=== PATIENT | female | born 1985 | race Caucasian/White ===

== ENCOUNTER 2017-08-20 09:04 | Observation (INO) | payer BC ==
[2017-08-20] VITALS (7 sets, daily range): BP systolic 107–151; BP diastolic 56–91; PULSE 68–84; RESP 16–20; TEMP 97.1–98.1; O2SAT 95–100
[~2017-08-20] VITALS: Ht 165.1 cm; Wt 117.0 kg
[2017-08-20] MEDS ORDERED: PREN29TA PO (09:28)
[2017-08-20] MEDS ORDERED: SODIUM CHLORIDE 0.9% FLUSH 10 ML FLUSH IVF PRN (11:00)
--- NOTE | 2017-08-20 11:05 | PD ---
HPI Chief Complaint: Numbness/Tingling Time Seen by Provider: 10:36 Travel History International Travel<30 days: No Contact w/Intl Traveler<30days: No Traveled to known affect area: No History of Present Illness HPI Old female presents to the emergency room for evaluation of dizziness, right upper extremity numbness, lip numbness, and unreactive pupils that started when she woke up this morning. Patient states she rolled out of bed and felt dizzy. She went to work because symptoms resolved and while at work and difficulty reading the computer. States she would be typing a word and is sure that she took the whole word but could not see the end of the word that she get typed. She had her boyfriend bring her to an urgent care where they told her to come straight to the emergency room. Patient states on her way to the urgent care she developed the numbness and tingling but since she has arrived to the ED, the symptoms have resolved. She has history of some of her symptoms in the past but has never had the numbness and tingling before. She had a 4 months ago. She is not on any control. Denies any chest pain, shortness breath, or unilateral leg swelling. Denies any other significant medical history. Patient is pumping about 30 ounces per day. States she did not have breakfast until she got to the ED. PFSH Past Medical History Migraines: Yes Tetanus Vaccination: Unknown ?: Unknown LMP: UNK : 1 Para: 1 Past Surgical History Section: Yes Social History Alcohol Use: No Tobacco Use: No Substance Use: No Allergies-Medications (Allergen,Severity, Reaction): Coded Allergies: Sulfa (Sulfonamide Antibiotics) (Verified Allergy, Severe, 08/20/17) amoxicillin (Verified Allergy, Severe, 08/20/17) cefaclor (Verified Allergy, Severe, 08/20/17) Penicillins (Verified Allergy, Unknown, 08/20/17) Reported Meds & Prescriptions Reported Meds & Active Scripts Active Reported Plus Iron 29-1 mg ( Vit-Iron Carbonyl) 29 Mg Iron-1 Mg Tab 1 Tab PO DAILY Review of Systems Except as stated in HPI: all other systems reviewed are Neg Physical Exam Narrative GENERAL: Well-nourished, well-developed female no acute distress. Afebrile. Ambulatory. SKIN: Focused skin assessment warm/dry. HEAD: Normocephalic. EYES: PERRL, EOMI, no discharge or injection. No scleral icterus. ENT: Mucosa pink and moist. No erythema or exudates. No uvular edema. No uvular , palatal, or tonsillar deviation. Airway patent. Nasal turbinates appear normal without nasal blood, purulent drainage or septal hematoma. NECK: Supple, trachea midline. No JVD or lymphadenopathy. CARDIOVASCULAR: Regular rate and rhythm without murmurs, gallops, or rubs. RESPIRATORY: Breath sounds equal bilaterally. No accessory muscle use. NEUROLOGICAL: Awake and alert. Cranial nerves II through XII intact. Motor and sensory grossly within normal limits. Five out of 5 muscle strength in all muscle groups. Normal speech. No pronator drift in upper or lower extremities. Normal heel to roper test. Normal finger to nose test. No loss of visual mark. NIH stroke scale of 0. Data Data Last Documented VS Vital Signs Date Time Temp Pulse Resp B/P (MAP) Pulse Ox O2 Delivery O2 Flow Rate FiO2 08/20/17 12:15 68 18 107/66 (80) 97 Room Air 08/20/17 09:13 97.1 Orders Orders Blood Glucose (08/20/17 10:55) Electrocardiogram (08/20/17 11:00) Prothrombin Time / Inr (Pt) (08/20/17 11:00) Act Partial Throm Time (Ptt) (08/20/17 11:00) Complete Blood Count With Diff (08/20/17 11:00) Comprehensive Metabolic Panel (08/20/17 11:00) Creatine Kinase (Cpk) (08/20/17 11:00) Urinalysis - C+S If Indicated (08/20/17 11:00) Ct Brain W/O Iv Contrast(Rout) (08/20/17 11:00) Ecg Monitoring (08/20/17 11:00) Iv Access Insert/Monitor (08/20/17 11:00) Oximetry (08/20/17 11:00) Sodium Chloride 0.9% Flush (Ns Flush) (08/20/17 11:00) Sodium Chlor 0.9% 1000 Ml Inj (Ns 1000 M (08/20/17 12:15) Urine Culture (08/20/17 11:43) Cephalexin (Keflex) (08/20/17 13:30) Labs Laboratory Tests Test 08/20/17 11:15 08/20/17 11:43 White Blood Count 8.4 TH/MM3 Red Blood Count 4.85 MIL/MM3 Hemoglobin 13.9 GM/DL Hematocrit 41.4 % Mean Corpuscular Volume 85.3 FL Mean Corpuscular Hemoglobin 28.6 PG Mean Corpuscular Hemoglobin Concent 33.5 % Red Cell Distribution Width 13.7 % Platelet Count 243 TH/MM3 Mean Platelet Volume 8.4 FL Neutrophils (%) (Auto) 82.4 % Lymphocytes (%) (Auto) 13.2 % Monocytes (%) (Auto) 4.2 % Eosinophils (%) (Auto) 0.0 % Basophils (%) (Auto) 0.2 % Neutrophils # (Auto) 6.9 TH/MM3 Lymphocytes # (Auto) 1.1 TH/MM3 Monocytes # (Auto) 0.4 TH/MM3 Eosinophils # (Auto) 0.0 TH/MM3 Basophils # (Auto) 0.0 TH/MM3 CBC Comment DIFF FINAL Differential Comment Prothrombin Time 10.2 SEC Prothromb Time International Ratio 1.0 RATIO Activated Partial Thromboplast Time 26.3 SEC Blood Urea Nitrogen 14 MG/DL Creatinine 0.67 MG/DL Random Glucose 95 MG/DL Total Protein 7.4 GM/DL Albumin 3.8 GM/DL Calcium Level 8.8 MG/DL Alkaline Phosphatase 83 U/L Aspartate Amino Transf (AST/SGOT) 19 U/L Alanine Aminotransferase (ALT/SGPT) 44 U/L Total Bilirubin 0.5 MG/DL Sodium Level 140 MEQ/L Potassium Level 4.0 MEQ/L Chloride Level 105 MEQ/L Carbon Dioxide Level 26.0 MEQ/L Anion Gap 9 MEQ/L Estimat Glomerular Filtration Rate 101 ML/MIN Total Creatine Kinase 61 U/L Urine Color YELLOW Urine Turbidity HAZY Urine pH 8.0 Urine Specific [place] 1.019 Urine Protein NEG mg/dL Urine Glucose (UA) NEG mg/dL Urine Ketones NEG mg/dL Urine Occult Blood NEG Urine Nitrite NEG Urine Bilirubin NEG Urine Urobilinogen LESS THAN 2.0 MG/DL Urine Leukocyte Esterase TRACE Urine RBC LESS THAN 1 /hpf Urine WBC 1 /hpf Urine Squamous Epithelial Cells 5 /hpf Urine Bacteria RARE /hpf Urine Mucus FEW /lpf Microscopic Urinalysis Comment CATH-CULTURE IND MDM Medical Decision Making Medical Screen Exam Complete: Yes Emergency Medical Condition: Yes Medical Record Reviewed: Yes Differential Diagnosis TIA, electrolyte abnormality, dehydration, hypoglycemia, brain tumor Narrative Course 32-year-old female presents to the emergency room for evaluation of right arm numbness, lip numbness, dizziness, and changes in vision that started upon waking. She went to an urgent care and they sent her directly here concerned for stroke. States since being evaluated in the ED her symptoms have resolved. Patient is resting comfortably and in no acute distress. There are no focal neurological deficits. Neuro exam is negative. NIH stroke scale of 0. IV access established basic labs obtained. EKG ordered. CT of the brain ordered and pending. Patient signed out to oncoming provider. See her note for further disposition. Condition: Stable Malika Yung Aug 20, 2017 11:05
--- NOTE | 2017-08-20 11:27 | PD ---
Physical Exam Date Seen by Provider: Aug 20, 2017 Time Seen by Provider: 11:26 Narrative This patient was initially seen by Malika Yung PA-C. Please see her note for details. Briefly, this is a 32-year-old female who began experiencing unilateral paresthesias and some loss of vision while at work today. Symptoms resolved on presentation. 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 She did not have anything to eat before the symptoms arose today. Patient signed out to me with lab work pending. GENERAL: Well-nourished, well-developed obese white female no acute distress. SKIN: Warm and dry. HEAD: Normocephalic. Atraumatic. EYES: No scleral icterus. No injection or drainage. PERRLA. EOMI. ENT: Pearly thompson tympanic membranes bilaterally. Nasal mucosa is moist. Oropharynx without erythema, edema or exudate. NECK: Supple, trachea midline. No JVD or lymphadenopathy. CARDIOVASCULAR: Regular rate and rhythm without murmurs, gallops, or rubs. RESPIRATORY: Breath sounds clear and equal bilaterally. No accessory muscle use. GASTROINTESTINAL: Abdomen soft, non-tender, nondistended. + Bowel sounds MUSCULOSKELETAL: No cyanosis, or edema. Walks with a normal gait. NEUROLOGICAL: Awake and alert. Cranial nerves II through XII intact. Motor and sensory grossly within normal limits. Five out of 5 muscle strength in all muscle groups. Normal speech. BACK: Nontender without obvious deformity. No CVA tenderness. Data Data Last Documented VS Vital Signs Date Time Temp Pulse Resp B/P (MAP) Pulse Ox O2 Delivery O2 Flow Rate FiO2 08/20/17 12:15 68 18 107/66 (80) 97 Room Air 08/20/17 09:13 97.1 Orders Orders Blood Glucose (08/20/17 10:55) Electrocardiogram (08/20/17 11:00) Prothrombin Time / Inr (Pt) (08/20/17 11:00) Act Partial Throm Time (Ptt) (08/20/17 11:00) Complete Blood Count With Diff (08/20/17 11:00) Comprehensive Metabolic Panel (08/20/17 11:00) Creatine Kinase (Cpk) (08/20/17 11:00) Urinalysis - C+S If Indicated (08/20/17 11:00) Ct Brain W/O Iv Contrast(Rout) (08/20/17 11:00) Ecg Monitoring (08/20/17 11:00) Iv Access Insert/Monitor (08/20/17 11:00) Oximetry (08/20/17 11:00) Sodium Chloride 0.9% Flush (Ns Flush) (08/20/17 11:00) Sodium Chlor 0.9% 1000 Ml Inj (Ns 1000 M (08/20/17 12:15) Urine Culture (08/20/17 11:43) Cephalexin (Keflex) (08/20/17 13:30) Admit Order (Ed Use Only) (08/20/17 13:45) Labs Laboratory Tests Test 08/20/17 11:15 08/20/17 11:43 White Blood Count 8.4 TH/MM3 Red Blood Count 4.85 MIL/MM3 Hemoglobin 13.9 GM/DL Hematocrit 41.4 % Mean Corpuscular Volume 85.3 FL Mean Corpuscular Hemoglobin 28.6 PG Mean Corpuscular Hemoglobin Concent 33.5 % Red Cell Distribution Width 13.7 % Platelet Count 243 TH/MM3 Mean Platelet Volume 8.4 FL Neutrophils (%) (Auto) 82.4 % Lymphocytes (%) (Auto) 13.2 % Monocytes (%) (Auto) 4.2 % Eosinophils (%) (Auto) 0.0 % Basophils (%) (Auto) 0.2 % Neutrophils # (Auto) 6.9 TH/MM3 Lymphocytes # (Auto) 1.1 TH/MM3 Monocytes # (Auto) 0.4 TH/MM3 Eosinophils # (Auto) 0.0 TH/MM3 Basophils # (Auto) 0.0 TH/MM3 CBC Comment DIFF FINAL Differential Comment Prothrombin Time 10.2 SEC Prothromb Time International Ratio 1.0 RATIO Activated Partial Thromboplast Time 26.3 SEC Blood Urea Nitrogen 14 MG/DL Creatinine 0.67 MG/DL Random Glucose 95 MG/DL Total Protein 7.4 GM/DL Albumin 3.8 GM/DL Calcium Level 8.8 MG/DL Alkaline Phosphatase 83 U/L Aspartate Amino Transf (AST/SGOT) 19 U/L Alanine Aminotransferase (ALT/SGPT) 44 U/L Total Bilirubin 0.5 MG/DL Sodium Level 140 MEQ/L Potassium Level 4.0 MEQ/L Chloride Level 105 MEQ/L Carbon Dioxide Level 26.0 MEQ/L Anion Gap 9 MEQ/L Estimat Glomerular Filtration Rate 101 ML/MIN Total Creatine Kinase 61 U/L Urine Color YELLOW Urine Turbidity HAZY Urine pH 8.0 Urine Specific [place] 1.019 Urine Protein NEG mg/dL Urine Glucose (UA) NEG mg/dL Urine Ketones NEG mg/dL Urine Occult Blood NEG Urine Nitrite NEG Urine Bilirubin NEG Urine Urobilinogen LESS THAN 2.0 MG/DL Urine Leukocyte Esterase TRACE Urine RBC LESS THAN 1 /hpf Urine WBC 1 /hpf Urine Squamous Epithelial Cells 5 /hpf Urine Bacteria RARE /hpf Urine Mucus FEW /lpf Microscopic Urinalysis Comment CATH-CULTURE IND MDM Supervised Visit with GREGORY: No Differential Diagnosis Hypoglycemia versus metabolic derangement versus less likely TIA versus other Narrative Course This patient was initially seen by Malika Yung PA-C. Please see her note for details. Briefly, this is a 32-year-old female who began experiencing unilateral paresthesias and some loss of vision while at work today. Symptoms resolved on presentation. 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 She did not have anything to eat before the symptoms arose today. Patient signed out to me with lab work pending. Vitals reviewed. Patient hypertensive on presentation, resolved during the course of the workup. No focal neuro deficits on exam. IV was established. Patient was administered 1 L normal saline. EKG rate 59, sinus bradycardia. FL interval 123, QRS 109, QTC 429 ms. Normal axis. No acute ST changes. Reviewed by Dr. Pardo. Fingerstick blood glucose [address] brain: Negative noncontrast CT. CBC: No concerning abnormalities. INR 1.0. CMP unremarkable. UA: Hazy, trace leukocyte esterase, rare bacteria, few mucus. Culture pending. I discussed the results of the workup with the patient. She states that she has many medication allergies but has taken Keflex safely in the past, last utilized before her . Will initiate Keflex 500 mg twice daily. Symptoms suspicious for TIA versus hypoglycemia. Patient is agreeable to observation admission for TIA workup. I spoke with Dr. Rojas. who agrees to accept the patient to the medicine service. Please see medicine notes for disposition. Condition: Stable Delmi Loera Aug 20, 2017 11:27
[2017-08-20 11:38] LABS: AUTOMATED NEUTROPHIL # 6.9 TH/MM3 (1.8-7.7); BASOPHIL % 0.2 % (0.0-2.0); HEMATOCRIT 41.4 % (35.0-46.0); HEMOGLOBIN 13.9 GM/DL (11.6-15.3); LYMPH % 13.2 % (9.0-44.0); LYMPHOCYTE # 1.1 TH/MM3 (1.0-4.8); MEAN CELL VOLUME 85.3 FL (80.0-100.0); MEAN CORPUSCULAR HEMOGLOBIN 28.6 PG (27.0-34.0); MEAN CORPUSCULAR HGB CONC 33.5 % (32.0-36.0); MEAN PLATELET VOLUME 8.4 FL (7.0-11.0); MONO % 4.2 % (0.0-8.0); MONOCYTE # 0.4 TH/MM3 (0-0.9); NEUT % 82.4 % (16.0-70.0); PLATELET COUNT 243 TH/MM3 (150-450); RED BLOOD COUNT 4.85 MIL/MM3 (4.00-5.30); RED CELL DISTRIBUTION WIDTH 13.7 % (11.6-17.2); WHITE BLOOD COUNT 8.4 TH/MM3 (4.0-11.0)
[2017-08-20 11:55] LABS: PROTHROMBIN TIME - PATIENT 10.2 SEC (9.8-11.6)
[2017-08-20 12:05] LABS: ALBUMIN 3.8 GM/DL (3.4-5.0); ALT (GPT) 44 U/L (10-53); BLOOD UREA NITROGEN 14 MG/DL (7-18); CALCIUM 8.8 MG/DL (8.5-10.1); CHLORIDE 105 MEQ/L (98-107); CREATININE 0.67 MG/DL (0.50-1.00); GLOMERULAR FILTRATION RATE 101 ML/MIN (>89); GLUCOSE,RANDOM 95 MG/DL (74-106); SODIUM (NA) 140 MEQ/L (136-145)
[2017-08-20 12:08] LABS: ALKALINE PHOSPHATASE 83 U/L (45-117); AST (GOT) 19 U/L (15-37); TOTAL BILIRUBIN ADULT 0.5 MG/DL (0.2-1.0); TOTAL PROTEIN 7.4 GM/DL (6.4-8.2)
--- NOTE | 2017-08-20 12:09 | RADRPT ---
EXAM DATE: 08/20/2017 11:49 AM EDT AGE/SEX: 32 years / Female INDICATIONS: Right sided facial numbness, dizziness, right pupil unreactive, headache. CLINICAL DATA: This is the patient's initial encounter. Patient reports that signs and symptoms have been present for 1 day and indicates a pain score of 3/10. MEDICAL/SURGICAL HISTORY: None. None. RADIATION DOSE: 56.35 CTDI (mGy) COMPARISON: No prior [facility] exams available for comparison. TECHNIQUE: CT of the head without contrast. Using automated exposure control and adjustment of the mA and/or kV according to patient size, radiation dose was kept as low as reasonably achievable to ob tain optimal diagnostic quality images. FINDINGS: Cerebrum: The ventricles are normal. No midline shift, mass lesion, hemorrhage or acute infarction. No extraaxial fluid collections are seen. Posterior Fossa: The cerebellum and brainstem demonstrate no acute abnormality. The 4th ventricle is midline. The cerebellopontine angle is within normal limits. Extracranial: The visualized sinuses are clear. There is an 8 mm subcutaneous scalp nodule at the le ft high convexity. Skull: The calvaria is intact. No skull fracture. CONCLUSION: Negative noncontrast head CT. No acute finding is identified. Electronically signed by: Chepe Green MD 08/20/2017 12:08 PM EDT
[2017-08-20] MEDS ORDERED: SODIUM CHLOR 0.9% 1000 ML INJ 1,000 ML IV ONE (12:15)
[2017-08-20 12:32] LABS: BACTERIA, URINE RARE /hpf; BILIRUBIN, URINE NEG (NEG); BLOOD, URINE NEG (NEG); GLUCOSE,URINE NEG (NEG); KETONE, URINE NEG (NEG); MUCUS URINE FEW /lpf (OCC); NITRITE,URINE NEG (NEG); SQUAMOUS EPITHELIAL CELL URINE 5 /hpf (0-5); URINE COLOR YELLOW (YELLW/STRAW); URINE LEUKOCYTE ESTERASE TRACE (NEG)
[2017-08-20] MEDS: CEPHALEXIN MONOHYDRATE 500 MG CAP PO SCH ×2 (13:31→23:06)
--- NOTE | 2017-08-20 14:17 | HHI.HP ---
[facility] No Primary Care Physician Admission Diagnosis right sided parasthesias, UTI Diagnoses: Chief Complaint: right sided paresthesia, blurred vision Travel History International Travel<30 Days: No Contact w/Intl Traveler <30 Da: No Traveled to Known Affected Are: No History of Present Illness Written by Carol Davenport, acting as scribe for Dr. Rojas on 08/20/17 at 14: 15. 32-year-old female with history of migraines presents with acute onset of right face/tongue/arm numbness and blurred vision. The patient reports this morning she woke up just not feeling right. She went to work despite not feeling well, then started to become dizzy with blurred vision and was unable to read her emails. She reports mild headache with nausea but no vomiting. She was waiting to leave work when her right face, right arm, and right side of the tongue went completely numb. She went to an urgent care who told her that her right pupil was sluggish and nonreactive. Her symptoms lasted approximately 30 minutes, then resolved on its own. She denies any recent fevers/chills. She reports recent mild headache but nothing compared to her migraines. She is currently 5months and actively . She admits to not eating anything today. She reports a normal healthy . She denies any other medical complaints including no slurred speech, chest pain, palpitations, shortness of breath, abdominal pain, nausea/vomiting, diarrhea, or constipation. Review of Systems Except as stated in HPI: all other systems reviewed are Neg Past Family Social History Past Medical History Migraines Recent intrauterine s/p Mar 2017 Past Surgical History March 2017 Reported Medications Plus Iron 29-1 mg ( Vit-Iron Carbonyl) 29 Mg Iron-1 Mg Tab 1 Tab PO DAILY Tylenol prn Allergies: Coded Allergies: Penicillins (Verified Allergy, Intermediate, Hives, 08/20/17) Sulfa (Sulfonamide Antibiotics) (Verified Allergy, Intermediate, Hives, 08/20/17) amoxicillin (Verified Allergy, Intermediate, Hives, 08/20/17) cefaclor (Verified Allergy, Intermediate, Hives, 08/20/17) Active Ordered Medications Current Medications Medications (Trade) Dose Ordered Sig/Patsy Route Start Time Stop Time Status Last Admin (NS Flush) 2 ml UNSCH PRN IVF 08/20/17 11:00 (Keflex) 500 mg Q12HR PO 08/20/17 13:30 Future hold 08/20/17 13:31 Family History Mother and father with hypertension Maternal and paternal family history positive for strokes and heart disease Social History Quit smoking tobacco 1 year ago Denies any alcohol use Denies any illicit drug use Physical Exam Vital Signs Vital Signs Date Time Temp Pulse Resp B/P (MAP) Pulse Ox O2 Delivery O2 Flow Rate FiO2 08/20/17 12:15 68 18 107/66 (80) 97 Room Air 08/20/17 09:25 18 08/20/17 09:13 97.1 71 20 151/91 (111) 100 Physical Exam GENERAL: Well-nourished, well-developed pleasant young overweight female patient in [facility]. SKIN: Warm and dry. No rash. HEAD: Normocephalic. Atraumatic. EYES: PERRLA. No scleral icterus. No injection or drainage. ENT: No nasal bleeding or discharge. Mucous membranes pink and moist. NECK: Supple. Trachea midline. CARDIOVASCULAR: Regular rate and rhythm. No murmur appreciated. RESPIRATORY: No accessory muscle use. Clear to auscultation. Breath sounds equal bilaterally. GASTROINTESTINAL: Abdomen soft, non-tender, nondistended. Normoactive bowel sounds x4. MUSCULOSKELETAL: No obvious deformities. Extremities without clubbing, cyanosis , or edema. NEUROLOGICAL: Awake and alert. No obvious cranial nerve deficits. Motor grossly within normal limits. 5/5 muscle strength in bilateral upper and lower extremities. Normal speech. PSYCHIATRIC: Appropriate mood and affect; insight and judgment normal. Laboratory Laboratory Tests Test 08/20/17 11:15 08/20/17 11:43 White Blood Count 8.4 Red Blood Count 4.85 Hemoglobin 13.9 Hematocrit 41.4 Mean Corpuscular Volume 85.3 Mean Corpuscular Hemoglobin 28.6 Mean Corpuscular Hemoglobin Concent 33.5 Red Cell Distribution Width 13.7 Platelet Count 243 Mean Platelet Volume 8.4 Neutrophils (%) (Auto) 82.4 Lymphocytes (%) (Auto) 13.2 Monocytes (%) (Auto) 4.2 Eosinophils (%) (Auto) 0.0 Basophils (%) (Auto) 0.2 Neutrophils # (Auto) 6.9 Lymphocytes # (Auto) 1.1 Monocytes # (Auto) 0.4 Eosinophils # (Auto) 0.0 Basophils # (Auto) 0.0 CBC Comment DIFF FINAL Differential Comment Prothrombin Time 10.2 Prothromb Time International Ratio 1.0 Activated Partial Thromboplast Time 26.3 Blood Urea Nitrogen 14 Creatinine 0.67 Random Glucose 95 Total Protein 7.4 Albumin 3.8 Calcium Level 8.8 Alkaline Phosphatase 83 Aspartate Amino Transf (AST/SGOT) 19 Alanine Aminotransferase (ALT/SGPT) 44 Total Bilirubin 0.5 Sodium Level 140 Potassium Level 4.0 Chloride Level 105 Carbon Dioxide Level 26.0 Anion Gap 9 Estimat Glomerular Filtration Rate 101 Total Creatine Kinase 61 Urine Color YELLOW Urine Turbidity HAZY Urine pH 8.0 Urine Specific [place] 1.019 Urine Protein NEG Urine Glucose (UA) NEG Urine Ketones NEG Urine Occult Blood NEG Urine Nitrite NEG Urine Bilirubin NEG Urine Urobilinogen LESS THAN 2.0 Urine Leukocyte Esterase TRACE Urine RBC LESS THAN 1 Urine WBC 1 Urine Squamous Epithelial Cells 5 Urine Bacteria RARE Urine Mucus FEW Microscopic Urinalysis Comment CATH-CULTURE IND Date/Time Source Procedure Growth Status 08/20/17 11:43 Urine Catheterized Urine Urine Culture Pending Received Result Diagram: 08/20/17 1115 08/20/17 1115 Imaging Last Impressions Head CT 08/20/17 1100 Signed Impressions: CONCLUSION: Negative noncontrast head CT. No acute finding is identified. Caprini VTE Risk Assessment Caprini VTE Risk Assessment: No/Low Risk (score <= 1) Caprini Risk Assessment Model Point Value = 1 Point Value = 2 Point Value = 3 Point Value = 5 Age 41-60 Minor surgery BMI > 25 kg/m2 Swollen legs Varicose veins or History of unexplained or recurrent spontaneous Oral contraceptives or hormone replacement Sepsis (< 1 month) Serious lung disease, including pneumonia (< 1 month) Abnormal pulmonary function Acute myocardial infarction Congestive heart failure (< 1 month) History of inflammatory bowel disease Medical patient at bed rest Age 61-74 Arthroscopic surgery Major open surgery (> 45 min) Laparoscopic surgery (> 45 min) Malignancy Confined to bed (> 72 hours) Immobilizing plaster cast Central venous access Age >= 75 History of VTE Family history of VTE Factor V Leiden Prothrombin [id number] Lupus anticoagulant Anticardiolipin antibodies Elevated serum homocysteine Heparin-induced thrombocytopenia Other congenital or acquired thrombophilia Stroke (< 1 month) Elective arthroplasty Hip, pelvis, or leg fracture Acute spinal cord injury (< 1 month) Prophylaxis Regimen Total Risk Factor Score Risk Level Prophylaxis Regimen 0-1 Low Early ambulation 2 Moderate Order ONE of the following: *Sequential Compression Device (SCD) *Heparin 5000 units SQ BID 3-4 Higher Order ONE of the following medications: *Heparin 5000 units SQ TID *Enoxaparin/Lovenox 40 mg SQ daily (WT < 150 kg, CrCl > 30 mL/min) *Enoxaparin/Lovenox 30 mg SQ daily (WT < 150 kg, CrCl > 10-29 mL/min) *Enoxaparin/Lovenox 30 mg SQ BID (WT < 150 kg, CrCl > 30 mL/min) AND/OR *Sequential Compression Device (SCD) 5 or more Highest Order ONE of the following medications: *Heparin 5000 units SQ TID (Preferred with Epidurals) *Enoxaparin/Lovenox 40 mg SQ daily (WT < 150 kg, CrCl > 30 mL/min) *Enoxaparin/Lovenox 30 mg SQ daily (WT < 150 kg, CrCl > 10-29 mL/min) *Enoxaparin/Lovenox 30 mg SQ BID (WT < 150 kg, CrCl > 30 mL/min) AND *Sequential Compression Device (SCD) Assessment and Plan Problem List: (1) TIA (transient ischemic attack) ICD Code: G45.9 - Transient cerebral ischemic attack, unspecified Assessment and Plan 32-year-old female with history of migraines presents with acute onset of right face/tongue/arm numbness and blurred vision. TIA: Presented with right-sided paresthesias and blurred vision, symptoms resolved after 30 minutes. -Head CT reviewed and unremarkable -Check brain MRI, carotid ultrasound, echocardiogram -No complaints of chest pain, check troponin/EKG x1 -Monitor neuro checks -Monitor on telemetry -Consult PT/OT and check swallow eval -Check lipid panel, hemoglobin A1c Abnormal UA: UA with trace leuks, bacteria. Afebrile, no leukocytosis. -Continue Keflex 500 mg p.o.bid started in the ER until urine culture finalized /breast-feeding: Patient reports normal healthy , currently still breast-feeding -Monitor medications -Patient will continue to pump while in the hospital -Check test DVT prophylaxis: Teds/SCDs Discussed Condition With Patient, ER PA Attending Statement This note was transcribed by ankit Davenport. I, Dr. Pelon Rojas personally performed the history, physical exam, and medical decision making; and confirmed the accuracy of the information in the transcribed note. Authenticated by Dr. Pelon Rojas on 08/20/17 at 15:07. Carol Davenport PA-C Aug 20, 2017 14:17 Pelon Rojas MD Aug 20, 2017 15:07
[2017-08-20] MEDS ORDERED: DEXTROSE 50% IN WATER 50 ML VIAL(D50) IV PUSH PRN (14:45)
[2017-08-20] MEDS ORDERED: GLUCAGON 1 MG/ML VIAL OTHER PRN (14:45)
[2017-08-20] MEDS ORDERED: SODIUM CHLORIDE 0.9% FLUSH 10 ML FLUSH IV FLUSH PRN (14:45)
--- NOTE | 2017-08-20 16:36 | RADRPT ---
EXAM DATE: 08/20/2017 4:30 PM EDT AGE/SEX: 32 years / Female INDICATIONS: Right sided numbness and blurred vision. CLINICAL DATA: This is the patient's initial encounter. Patient reports that signs and symptoms have been present for 1 day and indicates a pain score of 0/10. MEDICAL/SURGICAL HISTORY: . Migraines. section. COMPARISON: No prior [place] exams available for comparison. No external comparison. VELOCITY PARAMETERS: ICA/CCA Ratio: Right 0.8 , Left 0.8 ICA: Right 84 cm/sec, Left 102 cm/sec CCA: Right 109 cm/sec, Left 122 cm/sec ECA: Right 107 cm/sec, Left 97 cm/sec Vertebral: Right 81 cm/sec antegrade, Left 84 cm/sec antegrade FINDINGS: Right Carotid: No significant stenosis is visualized. The waveforms are within normal limits. Left Carotid: No significant stenosis is visualized. The waveforms are within normal limits. Other: None. CONCLUSION: No evidence of flow-limiting carotid stenosis. Electronically signed by: Chepe Lerner MD 08/20/2017 4:35 PM EDT
[2017-08-20] MEDS: INSULIN ASPART SUPPLEMENTAL SCALE SQ SCH ×2 (17:00→23:07)
[2017-08-20 17:15] LABS: HEMOGLOBIN A1C 5.1 % (4.3-6.0)
--- NOTE | 2017-08-20 20:23 | RADRPT ---
EXAM DATE: 08/20/2017 6:41 PM EDT AGE/SEX: 32 years / Female INDICATIONS: . Right sided facial numbness. CLINICAL DATA: This is the patient's initial encounter. Patient reports that signs and symptoms have been present for 2 days and indicates a pain score of 0/10. MEDICAL/SURGICAL HISTORY: None. section. COMPARISON: No prior [facility] exams available for comparison. TECHNIQUE: Multiplanar, multisequence examination of the brain was performed without contrast. FINDINGS: No intracranial mass or midline shift. No hydrocephalus. No abnormal extra-axial fluid collections ar e present. There are some cutaneous lesions within the scalp, possibly small sebaceous cysts. No recent infarct. No hydrocephalus or abnormal extra-axial fluid collections. CONCLUSION: 1. No acute findings. No recent infarct or mass effect. Electronically signed by: Adebayo Robles MD 08/20/2017 8:22 PM EDT
[2017-08-20] MEDS: SODIUM CHLORIDE 0.9% FLUSH 10 ML FLUSH IV FLUSH SCH (23:07)
[2017-08-21 02:50] VITALS: BP 117/58; PULSE 78; RESP 16; TEMP 98.1; O2SAT 96
[2017-08-21 07:30] VITALS: PULSE 74
[2017-08-21 07:43] LABS: CHOLESTEROL/ HDL RATIO 2.04 RATIO; HDL CHOLESTEROL 57.1 MG/DL (40.0-60.0)
[2017-08-21] MEDS: INSULIN ASPART SUPPLEMENTAL SCALE SQ SCH ×2 (07:56→12:00)
[2017-08-21] MEDS: CEPHALEXIN MONOHYDRATE 500 MG CAP PO SCH (08:00)
[2017-08-21] MEDS: SODIUM CHLORIDE 0.9% FLUSH 10 ML FLUSH IV FLUSH SCH (08:00)
[2017-08-21 08:58] VITALS: BP 128/68; PULSE 83; RESP 18; TEMP 98.9; O2SAT 98
--- NOTE | 2017-08-21 11:07 | HHI.PR ---
Subjective Remarks Follow up on patient with suspected TIA. Patient seen and examined. Patient states she is ready to go home. She denies any recurrence of right sided facial /tongue/arm numbness. She denies any headache, vision changes, dizziness or lightheadedness. She denies any numbness or weakness. She denies any fever or chills. She denies any chest pain or shortness of breath. She denies any nausea, vomiting or abdominal pain. She has been seen by PT/OT/ST and all have signed off. Objective Vitals Vital Signs Date Time Temp Pulse Resp B/P (MAP) Pulse Ox O2 Delivery O2 Flow Rate FiO2 08/21/17 08:58 98.9 83 18 128/68 (88) 98 08/21/17 07:30 74 08/21/17 02:50 98.1 78 16 117/58 (77) 96 08/20/17 23:00 73 08/20/17 22:52 98.1 81 16 115/56 (75) 97 08/20/17 19:35 97.7 84 16 120/69 (86) 97 08/20/17 17:11 71 08/20/17 16:05 98.0 81 20 137/75 (95) 95 08/20/17 15:42 08/20/17 12:15 68 18 107/66 (80) 97 Room Air I/O 08/20/17 08/20/17 08/20/17 08/21/17 08/21/17 08/21/17 07:00 15:00 23:00 07:00 15:00 23:00 Intake Total 1000 ml Balance 1000 ml Intake IV Total 1000 ml Result Diagram: 08/20/17 1115 08/20/17 1115 Imaging Last Impressions Head CT 08/20/17 1100 Signed Impressions: CONCLUSION: Negative noncontrast head CT. No acute finding is identified. Carotid Artery Ultrasound 08/20/17 0000 Signed Impressions: CONCLUSION: No evidence of flow-limiting carotid stenosis. Brain MRI 08/20/17 0000 Signed Impressions: CONCLUSION: 1. No acute findings. No recent infarct or mass effect. Objective Remarks GENERAL: Well-nourished, well-developed pleasant young overweight female patient in NAD. Awake and alert. Sitting up in bed. SKIN: Warm and dry. No rash. HEAD: Normocephalic. Atraumatic. EYES: PERRLA. No scleral icterus. No injection or drainage. ENT: No nasal bleeding or discharge. Mucous membranes pink and moist. NECK: Supple. Trachea midline. CARDIOVASCULAR: Regular rate and rhythm. No murmur appreciated. RESPIRATORY: Nonlabored. Clear to auscultation. Breath sounds equal bilaterally. GASTROINTESTINAL: Abdomen soft, non-tender, nondistended. Normoactive bowel sounds x4. MUSCULOSKELETAL: No obvious deformities. Extremities without clubbing, cyanosis , or edema. NEUROLOGICAL: Awake and alert. No obvious cranial nerve deficits. Motor grossly within normal limits. 5/5 muscle strength in bilateral upper and lower extremities. Normal speech. PSYCHIATRIC: Appropriate mood and affect; insight and judgment normal. Procedures None A/P Problem List: (1) TIA (transient ischemic attack) ICD Code: G45.9 - Transient cerebral ischemic attack, unspecified Assessment and Plan 32-year-old female with history of migraines presents with acute onset of right face/tongue/arm numbness and blurred vision. TIA: Presented with right-sided paresthesias and blurred vision, symptoms resolved after 30 minutes. Hx of migraines Head CT reviewed and unremarkable Brain MRI negative Carotid US negative LDL 53, A1c 5.1 -2D echocardiogram pending -Monitor neuro checks -Monitor on telemetry Abnormal UA: UA with trace leuks, bacteria. Afebrile, no leukocytosis. -UCX growing 50-100,000 Gram + jo ann, likely contaminants -d/c Keflex /breast-feeding: Patient reports normal healthy , currently still breast-feeding -Monitor medications -Patient will continue to pump while in the hospital DVT prophylaxis: Teds/SCDs 1717 Echo resulted Normal left ventricular size. Wall thickness is normal. The left ventricular systolic function is normal with an estimated ejection fraction in the range of 55-60%. No regional wall motion abnormalities are present. Discharge patient to home Condition on discharge: Improved Regular Diet as tolerated Ad Anay activity Rx written: None Follow-up with primary care physician Aruna Davey Aug 21, 2017 11:07
[2017-08-21 12:29] VITALS: PULSE 75
[2017-08-21 12:46] VITALS: BP 149/66; PULSE 80; RESP 18; TEMP 97.9; O2SAT 98
--- NOTE | 2017-08-21 15:22 | EKG ---
Date Performed: 08/20/2017 Time Performed: 10:55:14 PTAGE: 32 years EKG: SINUS BRADYCARDIA LOW QRS VOLTAGE IN PRECORDIAL LEADS INCOMPLETE RIGHT BUNDLE BRANCH BLOCK BORDERLINE ECG NO PREVIOUS TRACING DOCTOR: Milagro De Los Santos Interpretating Date/Time 08/21/2017 15:21:02
--- NOTE | 2017-08-21 16:03 | ECHRPT ---
Indication: cva/tia CONCLUSIONS The left ventricular systolic function is normal with an estimated ejection fraction in the range of 55-60%. There is trace tricuspid valve regurgitation. Trivial pulmonary valve regurgitation. BP: / HR: Rhythm: Technical Quality: FINDINGS LEFT VENTRICLE Normal left ventricular size. Wall thickness is normal. The left ventricular systolic function is normal with an estimated ejection fraction in the range of 55-60%. No regional wall motion abnormalities are present. RIGHT VENTRICLE Normal right ventricular size and systolic function. LEFT ATRIUM The left atrial size is normal. RIGHT ATRIUM The right atrial size is normal. ATRIAL SEPTUM Normal atrial septal thickness AORTA The aortic root and proximal ascending aorta are normal in size on limited imaging. MITRAL VALVE Structurally normal mitral valve. No mitral valve stenosis or regurgitation. AORTIC VALVE Probably trileaflet aortic valve. No aortic valve stenosis or regurgitation. TRICUSPID VALVE Structurally normal tricuspid valve. No tricuspid valve stenosis. There is trace tricuspid valve regurgitation. PULMONARY VALVE Trivial pulmonary valve regurgitation. VESSELS The inferior vena cava is normal in size. PERICARDIUM No pericardial effusion. Rajinder Chavez DO (Electronically Signed) Final Date:21 August 2017 16:01
[2017-08-21 16:05] VITALS: PULSE 68
--- NOTE | 2017-08-21 18:07 | PD ---
Physical Exam Narrative I, Dr. Pardo, have reviewed the mid-level practitioners documentation treatment, met with the patient [id number], made the diagnosis, and medical decision making was done by me. Please see the mid-level provider's note for full history, physical, and disposition. My assessment and findings: Patient presented to the emergency department complaining of dizziness and lightheadedness. States that she did not eat breakfast this morning but after she ate she felt better. Also noted some left- sided paresthesias that lasted approximately 30 minutes in duration. Prior to ER arrival all the symptoms resolved. She presented to the emergency department afebrile, hypotensive at 107/66, remaining vital signs stable. No focal neuro deficits noted on exam. Patient was placed on the classroom monitor, IV access obtained, and labs/head CT/EKG were done. CT head was negative for any acute process, EKG showed no acute changes, UA was trace positive for leukocyte esterase with culture pending. Patient does report a history of migraines, but unsure as to if symptoms are related to TIA, hypoglycemia, CVA, or complex migraine. Consequently, patient will be admitted for 23 hour observation. Data Data Last Documented VS Vital Signs Date Time Temp Pulse Resp B/P (MAP) Pulse Ox O2 Delivery O2 Flow Rate FiO2 08/20/17 12:15 68 18 107/66 (80) 97 Room Air 08/20/17 09:13 97.1 Orders Orders Blood Glucose (08/20/17 10:55) Electrocardiogram (08/20/17 11:00) Prothrombin Time / Inr (Pt) (08/20/17 11:00) Act Partial Throm Time (Ptt) (08/20/17 11:00) Complete Blood Count With Diff (08/20/17 11:00) Comprehensive Metabolic Panel (08/20/17 11:00) Creatine Kinase (Cpk) (08/20/17 11:00) Urinalysis - C+S If Indicated (08/20/17 11:00) Ct Brain W/O Iv Contrast(Rout) (08/20/17 11:00) Ecg Monitoring (08/20/17 11:00) Iv Access Insert/Monitor (08/20/17 11:00) Oximetry (08/20/17 11:00) Sodium Chloride 0.9% Flush (Ns Flush) (08/20/17 11:00) Sodium Chlor 0.9% 1000 Ml Inj (Ns 1000 M (08/20/17 12:15) Urine Culture (08/20/17 11:43) Cephalexin (Keflex) (08/20/17 13:30) Admit Order (Ed Use Only) (08/20/17 13:45) Labs Laboratory Tests Test 08/20/17 11:15 08/20/17 11:43 White Blood Count 8.4 TH/MM3 Red Blood Count 4.85 MIL/MM3 Hemoglobin 13.9 GM/DL Hematocrit 41.4 % Mean Corpuscular Volume 85.3 FL Mean Corpuscular Hemoglobin 28.6 PG Mean Corpuscular Hemoglobin Concent 33.5 % Red Cell Distribution Width 13.7 % Platelet Count 243 TH/MM3 Mean Platelet Volume 8.4 FL Neutrophils (%) (Auto) 82.4 % Lymphocytes (%) (Auto) 13.2 % Monocytes (%) (Auto) 4.2 % Eosinophils (%) (Auto) 0.0 % Basophils (%) (Auto) 0.2 % Neutrophils # (Auto) 6.9 TH/MM3 Lymphocytes # (Auto) 1.1 TH/MM3 Monocytes # (Auto) 0.4 TH/MM3 Eosinophils # (Auto) 0.0 TH/MM3 Basophils # (Auto) 0.0 TH/MM3 CBC Comment DIFF FINAL Differential Comment Prothrombin Time 10.2 SEC Prothromb Time International Ratio 1.0 RATIO Activated Partial Thromboplast Time 26.3 SEC Blood Urea Nitrogen 14 MG/DL Creatinine 0.67 MG/DL Random Glucose 95 MG/DL Total Protein 7.4 GM/DL Albumin 3.8 GM/DL Calcium Level 8.8 MG/DL Alkaline Phosphatase 83 U/L Aspartate Amino Transf (AST/SGOT) 19 U/L Alanine Aminotransferase (ALT/SGPT) 44 U/L Total Bilirubin 0.5 MG/DL Sodium Level 140 MEQ/L Potassium Level 4.0 MEQ/L Chloride Level 105 MEQ/L Carbon Dioxide Level 26.0 MEQ/L Anion Gap 9 MEQ/L Estimat Glomerular Filtration Rate 101 ML/MIN Hemoglobin A1c 5.1 % Total Creatine Kinase 61 U/L Human Chorionic Gonadotropin, Quant LESS THAN 1 MIU/ML Urine Color YELLOW Urine Turbidity HAZY Urine pH 8.0 Urine Specific [place] 1.019 Urine Protein NEG mg/dL Urine Glucose (UA) NEG mg/dL Urine Ketones NEG mg/dL Urine Occult Blood NEG Urine Nitrite NEG Urine Bilirubin NEG Urine Urobilinogen LESS THAN 2.0 MG/DL Urine Leukocyte Esterase TRACE Urine RBC LESS THAN 1 /hpf Urine WBC 1 /hpf Urine Squamous Epithelial Cells 5 /hpf Urine Bacteria RARE /hpf Urine Mucus FEW /lpf Microscopic Urinalysis Comment CATH-CULTURE IND MDM Supervised Visit with GREGORY: Yes Diagnosis Primary Impression: Paresthesia Admitting Information Admitting Physician Requests: Observation Condition: Stable Sonali Pardo MD Aug 21, 2017 18:07
== END 2017-08-21 17:13 | disposition home or self-care (01) ==
LOC: NEPC 09:04 → NEDH 13:47 → NEPFCDU 15:42
PROVIDERS: ADMIT Family Medicine; ATTEND Family Medicine
DX: G45.9 Transient cerebral ischemic attack, unspecified (principal); H53.8 Other visual disturbances; G43.909 Migraine, unspecified, not intractable, without status migrainosus; N39.0 Urinary tract infection, site not specified; I95.9 Hypotension, unspecified; R42 Dizziness and giddiness; H54.7 Unspecified visual loss; R00.1 Bradycardia, unspecified; B96.89 Other specified bacterial agents as the cause of diseases classified elsewhere; I45.10 Unspecified right bundle-branch block
CPT/HCPCS: 70450; 70551; 80053; 80061; 81001; 82550; 82948; 83036; 84702; 85025; 85610; 85730; 87086; 92610; 93005; 93306; 93880; 97161; 97166; 99285; G0378; G8987; G8988; G8989; G8996; G8997; G8998; J7030